=== PATIENT | male | born 1995 | race Caucasian/White ===

== ENCOUNTER 2017-04-18 16:44 | Emergency (ER) | payer MEDICAID, OTHER ==
[~2017-04-18] VITALS: Ht 188 cm; Wt 102.1 kg
[~2017-04-18 16:44] MED LIST: METO25TA23 PO
--- NOTE | 2017-04-18 16:58 | ER Report ---
History and Physical Time Seen By MD: 16:56 (COLLEEN JAUREGUI) HPI/ROS CHIEF COMPLAINT: Lightheadedness HISTORY OF PRESENT ILLNESS: This is a 22-year-old male who presents to the emergency department for lightheadedness and numbness and tingling in the fingers and toes. Patient has a known history of hypertension takes metoprolol twice a day for his hypertension. Patient states that today he ate his dinner around 4:00 took his medication shortly after this. And then around 4:20pm he began to have some tingling and numbness in his hands as well as lightheadedness. Patient became a little anxious and decided to come in for further evaluation. Patient arrives with numbness and tingling is still in the fingers and toes but the lightheadedness is improving. Patient states that maybe he took his 2nd dose of metoprolol to soon as he typically takes it around 10:00 at night. The repeat blood pressure while I was in the room was 139 /87. Patient denies chest pain or shortness of breath. Patient denies nausea, vomiting, diarrhea, aches or chills. Patient states that he has been under increased stress as he is recently moved to [place] and other than his hypertension he is healthy. REVIEW OF SYSTEMS: Respiratory: No cough, no dyspnea. Cardiovascular: No chest pain, no palpitations. Gastrointestinal: No vomiting, no abdominal pain. Musculoskeletal: No back pain. Neurological: As above. (COLLEEN JAUREGUI) Allergies: Coded Allergies: divalproex sodium (Verified Allergy, Mild, NAUSEA/VOMITING, 04/18/17) Home Meds Reported Medications Metoprolol Succinate (METOPROLOL SUCCINATE) 25 Mg Tab.er.24h, 1 TAB PO BID, TAB 04/18/17 Discontinued Reported Medications Metoprolol Succinate (METOPROLOL SUCCINATE) 25 Mg Tab.er.24h, 1 TAB PO QDAY, TAB 11/26/16 Past Medical/Surgical History Patient has a past medical and surgical history of hypertension, no surgeries. (COLLEEN JAUREGUI) Reviewed Nurses Notes: Yes (COLLEEN JAUREGUI) Constitutional Vital Sign - Last 24 Hours 04/18/17 04/18/17 04/18/17 04/18/17 16:57 16:59 17:00 17:00 Temp 98.1 Pulse 77 65 Resp 16 B/P (MAP) 146/84 (104) 139/87 (104) 146/84 Pulse Ox 93 93 O2 Delivery Room Air 04/18/17 04/18/17 04/18/17 04/18/17 17:04 17:09 17:14 17:19 Pulse 67 65 69 76 Pulse Ox 93 92 94 93 04/18/17 04/18/17 04/18/17 04/18/17 17:24 17:29 17:30 17:34 Pulse 64 71 75 B/P (MAP) 125/69 (87) Pulse Ox 92 94 93 04/18/17 04/18/17 04/18/17 04/18/17 17:39 17:40 17:42 17:44 Pulse 61 64 68 68 70 B/P (MAP) 129/77 (94) 131/77 (95) 124/65 (84) 129/77 (94) Pulse Ox 93 94 04/18/17 04/18/17 04/18/17 04/18/17 17:49 17:54 17:59 18:00 Pulse 64 58 63 B/P (MAP) 128/77 (94) Pulse Ox 94 94 95 04/18/17 04/18/17 04/18/17 04/18/17 18:04 18:09 18:14 18:19 Pulse 67 64 63 61 Pulse Ox 93 94 93 94 04/18/17 04/18/17 04/18/17 04/18/17 18:24 18:29 18:30 18:34 Pulse 67 60 63 B/P (MAP) 126/76 (93) Pulse Ox 93 94 93 04/18/17 04/18/17 04/18/17 04/18/17 18:39 18:44 18:59 19:00 Pulse 60 61 63 B/P (MAP) 125/74 (91) Pulse Ox 94 93 93 04/18/17 04/18/17 04/18/17 04/18/17 19:14 19:29 19:30 19:44 Pulse 60 58 62 B/P (MAP) 127/76 (93) Pulse Ox 93 93 92 04/18/17 04/18/17 19:49 20:00 Pulse 61 B/P (MAP) 130/78 (95) Pulse Ox 94 ([facility],REBA Quiros MD) Physical Exam General Appearance: The patient is alert, has no immediate need for airway protection and no current signs of toxicity. Eyes: Pupils equal and round no injection. Respiratory: Chest is non tender, lungs are clear to auscultation. Cardiac: regular rate and rhythm, no murmurs, clicks or rubs. Gastrointestinal: Abdomen is soft and non tender, no masses, bowel sounds normal. Musculoskeletal: Neck: Neck is supple and non tender. Extremities have full range of motion and are non tender. Skin: No rashes or lesions. DIFFERENTIAL DIAGNOSIS: After history and physical exam differential diagnosis was considered for lightheadedness including but not limited to peripheral and central causes of vertigo, orthostatic causes including dehydration, and blood loss, anxiety, peripheral vascular disease, acs. (COLLEEN JAUREGUI [facility]-) Medical Decision Making Data Points Result Diagram: 04/18/17 1723 04/18/17 1723 Laboratory Hematology Test 04/18/17 17:23 04/18/17 18:05 Red Blood Count 5.91 M/uL (4.00-5.60) Mean Corpuscular Volume 87.9 fL (80.0-96.0) Mean Corpuscular Hemoglobin 29.8 pg (26.0-33.0) Mean Corpuscular Hemoglobin Concent 33.9 g/dL (32.0-36.0) Red Cell Distribution Width 13.9 % (11.5-14.5) Mean Platelet Volume 11.2 fL (7.2-11.1) Neutrophils (%) (Auto) 79.9 % (39.4-72.5) Lymphocytes (%) (Auto) 13.1 % (17.6-49.6) Monocytes (%) (Auto) 6.5 % (4.1-12.4) Eosinophils (%) (Auto) 0.1 % (0.4-6.7) Basophils (%) (Auto) 0.4 % (0.3-1.4) Nucleated RBC Relative Count (auto) 0.0 /100WBC Neutrophils # (Auto) 9.5 K/uL (2.0-7.4) Lymphocytes # (Auto) 1.6 K/uL (1.3-3.6) Monocytes # (Auto) 0.8 K/uL (0.3-1.0) Eosinophils # (Auto) 0.0 K/uL (0.0-0.5) Basophils # (Auto) 0.0 K/uL (0.0-0.1) Nucleated RBC Absolute Count (auto) 0.00 K/uL Sodium Level 141 mmol/L (137-145) Potassium Level 3.8 mmol/L (3.5-5.0) Chloride Level 102 mmol/L (98-107) Carbon Dioxide Level 26 mmol/L (22-30) Blood Urea Nitrogen 8 mg/dl (9-21) Creatinine 0.80 mg/dl (0.66-1.25) Glomerular Filtration Rate Calc > 60.0 Random Glucose 90 mg/dl (75-110) Calcium Level 9.6 mg/dl (8.4-10.2) Total Bilirubin 0.7 mg/dl (0.2-1.3) Aspartate Amino Transf (AST/SGOT) 32 U/L (0-35) Alanine Aminotransferase (ALT/SGPT) 45 U/L (0-56) Alkaline Phosphatase 77 U/L (0-126) Total Protein 7.9 gm/dl (6.3-8.2) Albumin 4.6 g/dl (3.5-5.0) Influenza Type A Antigen Negative (NEGATIVE) Influenza Type B Antigen Negative (NEGATIVE) Chemistry Test 04/18/17 17:23 04/18/17 18:05 White Blood Count 11.9 k/uL (4.5-11.0) Red Blood Count 5.91 M/uL (4.00-5.60) Hemoglobin 17.6 g/dL (14.0-18.0) Hematocrit 52.0 % (42.0-52.0) Mean Corpuscular Volume 87.9 fL (80.0-96.0) Mean Corpuscular Hemoglobin 29.8 pg (26.0-33.0) Mean Corpuscular Hemoglobin Concent 33.9 g/dL (32.0-36.0) Red Cell Distribution Width 13.9 % (11.5-14.5) Platelet Count 208 K/uL (150-450) Mean Platelet Volume 11.2 fL (7.2-11.1) Neutrophils (%) (Auto) 79.9 % (39.4-72.5) Lymphocytes (%) (Auto) 13.1 % (17.6-49.6) Monocytes (%) (Auto) 6.5 % (4.1-12.4) Eosinophils (%) (Auto) 0.1 % (0.4-6.7) Basophils (%) (Auto) 0.4 % (0.3-1.4) Nucleated RBC Relative Count (auto) 0.0 /100WBC Neutrophils # (Auto) 9.5 K/uL (2.0-7.4) Lymphocytes # (Auto) 1.6 K/uL (1.3-3.6) Monocytes # (Auto) 0.8 K/uL (0.3-1.0) Eosinophils # (Auto) 0.0 K/uL (0.0-0.5) Basophils # (Auto) 0.0 K/uL (0.0-0.1) Nucleated RBC Absolute Count (auto) 0.00 K/uL Glomerular Filtration Rate Calc > 60.0 Calcium Level 9.6 mg/dl (8.4-10.2) Total Bilirubin 0.7 mg/dl (0.2-1.3) Aspartate Amino Transf (AST/SGOT) 32 U/L (0-35) Alanine Aminotransferase (ALT/SGPT) 45 U/L (0-56) Alkaline Phosphatase 77 U/L (0-126) Total Protein 7.9 gm/dl (6.3-8.2) Albumin 4.6 g/dl (3.5-5.0) Influenza Type A Antigen Negative (NEGATIVE) Influenza Type B Antigen Negative (NEGATIVE) ([facility]) EKG/Imaging EKG Interpretation 12 lead EKG: Rhythm: Normal sinus rhythm, 62 bpm. [place]: normal QRS: normal ST segments: normal No ST depression or elevation. (COLLEEN JAUREGUI [facility]) ED Course/Re-evaluation ED Course Patient was admitted to room. A history of physical were obtained. Differential diagnoses were considered. A CBC, CMP were obtained which were unremarkable. Negative influenza. I did review these results with the patient, he states that he is still having some dizziness. After further investigation the patient states that he has had dizziness in the past they did assess him for vertigo. The patient was given 25 mg of meclizine with mild relief. I discussed with the patient going home and following up with ENT for further evaluation this week the patient is in agreement with this. Patient was also encouraged to take meclizine for the next 5 days to see if this would help with his dizziness as well as keeping up on his hydration status. Patient had no other questions or concerns and was discharged home. Decision to Disposition Date: Apr 18, 2017 Decision to Disposition Time: 19:51 (COLLEEN JAUREGUI-) Depart Departure Latest Vital Signs Vital Signs Date Time Temp Pulse Resp B/P (MAP) Pulse Ox O2 Delivery O2 Flow Rate FiO2 04/18/17 20:00 130/78 (95) 04/18/17 19:49 61 94 04/18/17 17:00 98.1 16 Room Air (REBA SOSA MD) Impression: Primary Impression: Vertigo Condition: Improved Disposition: HOME OR SELF-CARE Referrals: REEMA MORA JR, MD Patient Instructions: Vertigo (DC) Additional Instructions: Drink plenty of fluids. Get plenty of rest. You can buy meclizine over the counter, take 1 tablet twice a day for [address] Mora, the ENT specialist tomorrow for a follow up appointment. May return to the ED for worsening symptoms. CAR TESTER/PA consult with MD: Verbally (REBA SOSA MD) COLLEEN JAUREGUI Apr 18, 2017 16:58 REBA SOSA MD Apr 18, 2017 17:31
[2017-04-18] MEDS ORDERED: METO25TA23 PO (17:03)
--- NOTE | 2017-04-18 17:16 | EKG ---
FACILITY: [facility] PATIENT NAME: MIKI PARKER : [id number] MR: [id number] V: [id number] EXAM DATE: ORDERING PHYSICIAN: COLLEEN JAUREGUI TECHNOLOGIST: Test Reason : Blood Pressure : / mmHG Vent. Rate : 062 BPM Atrial Rate : 062 BPM P-R Int : 136 ms QRS Dur : 092 ms QT Int : 404 ms P-R-T Axes : 018 054 021 degrees QTc Int : 410 ms Normal sinus rhythm with sinus arrhythmia Normal ECG No previous ECGs available Confirmed by TILA BHATTI ([id number]) on 04/19/2017 6:39:16 AM Referred By: Confirmed By:TILA BHATTI
[2017-04-18 17:41] LABS: PLATELET COUNT, AUTOMATED 208 K/uL (150-450)
[2017-04-18] MEDS ORDERED: MECLIZINE HCL 25 MG TAB PO ONE (18:55)
[2017-04-18 20:00] VITALS: BP 130/78
== END 2017-04-18 20:02 | disposition home or self-care (01) ==
LOC: ER 16:49
DX: R42 Dizziness and giddiness (principal); I49.9 Cardiac arrhythmia, unspecified
CPT/HCPCS: 36415; 85025; 87502; 93005; 99283; J8597; 82040; 82247; 82310; 82374; 82435; 82565; 82947; 84075; 84132; 84155; 84295; 84450; 84460; 84520